=== PATIENT | female | born 1980 | race Two or more races ===

== ENCOUNTER 2017-01-09 08:44 | Emergency (ER) | payer MEDICAID ==
[~2017-01-09] VITALS: Ht 157.5 cm; Wt 83.0 kg
[2017-01-09 09:24] LABS: Basophils # (auto) 0 uL; Basophils % (auto) 0.2 % (0.0-2.0); CONDITION Y; DEFINITIVE SEE PRINTOUT; Eosinophils # (auto) 0.1 uL; Hematocrit 35.3 % (36.0-46.0); Hemoglobin 11.2 g/dL (12.2-16.2); Lymphocytes # (auto) 1.6 uL; Lymphocytes % (auto) 17.3 % (10.0-50.0); Mean Corpuscular Hemoglobin 22.1 pg (28.0-32.0); Mean Corpuscular Hgb Conc. 31.7 g/dL (32.0-36.0); Mean Corpuscular Volume 69.9 fL (80.0-100.0); Monocytes # (auto) 0.5 uL; Monocytes % (auto) 5.3 % (0.0-12.0); Neutrophils % (auto) 76.2 % (37.0-80.0); Platelet Count (auto) 324 10^3/uL (140-450); SUSPECT SEE PRINTOUT; White Blood Cell 9.2 10^3/uL (4.4-10.8)
[2017-01-09 09:31] LABS: Red Cell Distribution Width 30.5 % (11.6-16.0)
[2017-01-09 11:40] LABS: Anisocytosis Moderate; Platelet Estimate Adequate
[2017-01-09 11:41] LABS: Large Platelets MODERATE; Microcytosis Moderate
[2017-01-09 11:42] LABS: Hypochromia Slight
[2017-01-09] MEDS ORDERED: SODIUM CHLORIDE 0.9% 1,000 ML IV ONE (12:30)
[2017-01-09] MEDS ORDERED: InsuLIN REG 1unit/0.01ml Soln (100units/ml) IV ONE (12:45)
[2017-01-09 13:20] LABS: INR 0.92 (0.9-1.15); Partial Thromboplastin Time 26.1 sec (22.64-33.71)
[2017-01-09 13:34] LABS: Albumin 3.9 g/dL (3.4-5.0); BUN/Creatinine Ratio 16.7; Bilirubin, Total 0.4 mg/dL (0.2-1.0); Calcium 8.6 mg/dL (8.5-10.1); Potassium 4.4 mmol/L (3.5-5.1); Total Protein 8.1 g/dL (6.4-8.2)
[2017-01-09 16:58] VITALS: BP 127/76
== END 2017-01-09 16:21 | disposition home or self-care (01) ==
LOC: ER 08:44
DX: O20.0 Threatened abortion (principal); E11.65 Type 2 diabetes mellitus with hyperglycemia; Z3A.00 Weeks of gestation of pregnancy not specified
CPT/HCPCS: 36415; 76801; 80053; 81002; 82962; 84702; 85025; 85610; 85730; 96361; 96374; 99285; J1815; J7030; 76817

== ENCOUNTER 2017-06-27 09:55 | Emergency (ER) | payer MEDICAID ==
[~2017-06-27] VITALS: Ht 157.5 cm; Wt 86.2 kg
[2017-06-27 10:32] LABS: Eosinophils # (auto) 0.1 uL; Hemoglobin 11.7 g/dL (12.2-16.2); Lymphocytes # (auto) 1.6 uL; Neutrophils # (auto) 5.3 uL
[2017-06-27 10:35] LABS: Basophils # (auto) 0.1 uL; Basophils % (auto) 0.8 % (0.0-2.0); Eosinophils % (auto) 1.6 % (0.0-7.0); Hematocrit 35.9 % (36.0-46.0); Lymphocytes % (auto) 21.3 % (10.0-50.0); Mean Corpuscular Hemoglobin 25.2 pg (28.0-32.0); Mean Corpuscular Hgb Conc. 32.7 g/dL (32.0-36.0); Mean Corpuscular Volume 77.1 fL (80.0-100.0); Monocytes # (auto) 0.5 uL; Monocytes % (auto) 6.3 % (0.0-12.0); Nucleated Red Blood Cells % 0.2 %; Platelet Count (auto) 225 10^3/uL (140-450); Red Blood Cells 4.65 10^6/uL (4.0-5.20); Red Cell Distribution Width 15.3 % (11.8-14.3); White Blood Cell 7.6 10^3/uL (4.4-10.8)
[2017-06-27 10:38] LABS: Urine Bacteria FEW /hpf (None Seen); Urine Blood Negative /uL (Negative); Urine Mucus FEW (None Seen); Urine Specific Gravity 1.033 (1.001-1.035); Urine WBC 74 /hpf (0 - 5)
[2017-06-27 10:51] LABS: Albumin 3.8 g/dL (3.4-5.0); BUN/Creatinine Ratio 17.8; Calcium 8.9 mg/dL (8.5-10.1); Potassium 3.8 mmol/L (3.5-5.1)
[2017-06-27 11:01] LABS: Bilirubin, Total 0.4 mg/dL (0.2-1.0); Total Protein 7.6 g/dL (6.4-8.2)
[2017-06-27] MEDS ORDERED: SODIUM CHLORIDE 0.9% 1,000 ML IV ONE (17:15)
[2017-06-27] MEDS ORDERED: KETOROLAC TROMETH 30 MG/ML 1ML VIAL IV ONE (17:15)
[2017-06-27] MEDS ORDERED: PROMETHAZINE HCL 25 MG/ML 1ML IV PRN (17:15)
[2017-06-27] MEDS ORDERED: IOHEXOL 300 MG/ML 100ML BOTTLE IJ ONE (17:26)
[2017-06-27 18:40] VITALS: BP 143/67
[2017-06-27] MEDS ORDERED: cefTRIAXone 1GM/10ml IVPUSH 10 ML IV ONE (18:45)
== END 2017-06-27 20:40 | disposition home or self-care (01) ==
LOC: ER 09:55
DX: N39.0 Urinary tract infection, site not specified (principal); E11.9 Type 2 diabetes mellitus without complications
CPT/HCPCS: 36415; 74177; 80053; 81001; 81025; 82150; 83690; 84443; 85025; 96361; 96374; 96375; 99285; J1885; J2550; J7030; Q9967